=== PATIENT | female | born 1980 | race Caucasian/White ===

== ENCOUNTER 2024-05-22 08:36 | Outpatient (CLI) | payer OTHER, MEDICAID | END 2024-05-22 08:37 | disposition home or self-care (01) | LOC: CSHSLEEP 08:36 → EDSTATUS 09:47 | PROVIDERS: ATTEND Family Medicine | DX: G47.33 Obstructive sleep apnea (adult) (pediatric) (principal); R53.83 Other fatigue; G47.10 Hypersomnia, unspecified | CPT/HCPCS: 95800 ==